=== PATIENT | female | born 1990 | race Caucasian/White ===

== ENCOUNTER → 2016-09-24 | Emergency (ER) | payer OTHER ==
[2016-09-24 18:33] VITALS: PULSE 69; BMI 24.1
--- NOTE | 2016-09-24 18:53 | PDOC ---
History of Present Illness <Carissa Rivero - Last Filed: 09/24/16 21:51> - General History Source: Patient Exam Limitations: No Limitations - History of Present Illness Initial Comments: 09/24/16 18:52 This pt is a 26 yo F () with no past medical history, who has not followed up with an pipe line gauger, who presents with a complaint of vaginal bleeding. She states her symptoms began today. She is currently NOT saturating any pads. No clots, no tissue no lower abdominal pain Pt has diffuse lower back pain, aching, rates pain 7/10, constant No fevers or chills no nausea or vomiting No dysuria ROS: GENERAL/CONSTITUTIONAL: No: fever, chills, weakness, loss of appetite. HEAD, EYES, EARS, NOSE AND THROAT: No: change in vision, ear pain, discharge, sore throat, throat swelling. CARDIOVASCULAR: No: chest pain, lightheadedness, palpitations, syncope RESPIRATORY: No: cough, shortness of breath, wheezing, hemoptysis, stridor. GASTROINTESTINAL: No: abdominal pain, nausea, vomiting, diarrhea GENITOURINARY: (+) Vaginal bleeding No: dysuria, hematuria, frequency, urgency, flank pain. MUSCULOSKELETAL: (+) back pain No: neck pain, joint pain, muscle swelling or pain SKIN: No: lesions, pallor, rash or easy bruising. NEUROLOGIC: No: headache, vertigo, paresthesias, weakness ENDOCRINE: No: unexplained weight gain or loss HEMATOLOGIC/LYMPHATIC: No: anemia, easy bleeding, swelling nodes. PHYSICAL EXAM GENERAL: The patient is in no acute distress. HEAD: Normal with no signs of trauma. EYES: PERRLA, EOMI, sclera anicteric, conjunctiva clear. ENT: Ears normal, nares patent, oropharynx clear without exudates. Moist mucous membranes. NECK: Normal range of motion, supple without lymphadenopathy, JVD, or masses. LUNGS: Breath sounds equal, clear to auscultation bilaterally. No wheezes, and no crackles. HEART:Regular rate and rhythm, normal S1 and S2 without murmur, rub or gallop. ABDOMEN: No lower abdominal tenderness to palpation, Soft, normoactive bowel sounds. No guarding, no rebound. PELVIC: PELVIC EXAMINATION: External genitalia: Normal without lesions. Vagina: Vault is clear scant blood in vault Cervix: Long and closed with no cervical motion tenderness. Uterus: Nontender, normal in size. Adnexa: Nontender, without masses. EXTREMITIES: Normal range of motion, no edema. No clubbing or cyanosis. No erythema, or tenderness. NEUROLOGICAL: Cranial nerves II through XII grossly intact. Normal speech. No focal neurological deficits. MUSCULOSKELETAL: Back non-tender to palpation, no CVA tenderness SKIN: Warm, Dry, normal turgor, no rashes or lesions noted. 09/24/16 19:22 <Deya Mitchell - Last Filed: 09/25/16 19:48> - General Chief Complaint: Vaginal Bleeding Stated Complaint: 10WKS/VAGINAL BLEEDING/BACK PAIN Time Seen by Provider: 09/24/16 18:34 Past History <Carissa Rivero - Last Filed: 09/24/16 21:51> - Psycho/Social/Smoking Cessation Hx Anxiety: No Suicidal Ideation: No Smoking History: Never smoked Have you smoked in the past 12 months: No Information on smoking cessation initiated: No Hx Alcohol Use: No Drug/Substance Use Hx: No Substance Use Type: None <Deya Mitchell - Last Filed: 09/25/16 19:48> - Past Medical History Allergies/Adverse Reactions: Allergies Allergy/AdvReac Type Severity Reaction Status Date / Time No Known Allergies Allergy Verified 09/24/16 18:30 Home Medications: Ambulatory Orders NK [No Known Home Medication] 09/25/16 *Physical Exam - Vital Signs Last Vital Signs Temp Pulse Resp BP Pulse Ox 97.6 F 69 18 113/57 100 09/24/16 18:31 09/24/16 18:31 09/24/16 18:31 09/24/16 18:31 09/24/16 18:31 <Carissa Rivero - Last Filed: 09/24/16 21:51> - Vital Signs Last Vital Signs Temp Pulse Resp BP Pulse Ox 97.6 F 69 18 113/57 100 09/24/16 18:31 09/24/16 18:31 09/24/16 18:31 09/24/16 18:31 09/24/16 18:31 <Deya Mitchell - Last Filed: 09/25/16 19:48> ED Treatment Course - LABORATORY CBC & Chemistry Diagram: 09/24/16 18:53 09/24/16 18:45 - ADDITIONAL ORDERS Additional order review: Laboratory Results 09/24/16 09/24/16 09/24/16 19:02 18:52 18:45 Sodium 140 Potassium 4.0 Chloride 106 Carbon Dioxide 27 Anion Gap 7 L BUN 6 L Creatinine 0.6 Random Glucose 103 Calcium 8.6 Beta HCG, Quant 86381.0 Urine Color Ltyellow Urine Appearance Clear Urine pH 8.0 Ur Specific [place] 1.011 Urine Protein Negative Urine Glucose (UA) Negative Urine Ketones Negative Urine Blood 2+ H Urine Nitrite Negative Urine Bilirubin Negative Urine Urobilinogen Negative Ur Leukocyte Esterase Trace H Blood Type A POSITIVE Antibody Screen Negative 09/24/16 18:53 RBC 4.14 MCV 87.8 MCHC 33.9 RDW 13.4 MPV 9.0 Neutrophils % 67.8 Lymphocytes % 23.8 Monocytes % 5.3 Eosinophils % 2.5 Basophils % 0.6 <Carissa Rivero - Last Filed: 09/24/16 21:51> - LABORATORY CBC & Chemistry Diagram: 09/24/16 18:53 09/24/16 18:45 - RADIOLOGY Radiology Studies Ordered: Category Date Time Status TRANSVAGINAL US PREG [US] Stat Ultrasound 09/24/16 18:35 Ordered <Deya Mitchell - Last Filed: 09/25/16 19:48> Medical Decision Making - Medical Decision Making 09/24/16 21:51 Transvaginal ultrasound as reviewed by Dr. Deleon reports single intrauterine gestational sac with estimated sonographic gestational age of 6 weeks 4 days. No pole identified. Rule out failed /blighted ovum. Correlation with serial quantitative serum beta hCG and close up ultrasound recommended. <Carissa Rivero - Last Filed: 09/24/16 21:51> - Medical Decision Making 09/24/16 19:31 Will do labs will do US Will re assess 09/24/16 19:32 09/24/16 19:57 Laboratory Tests 09/24/16 09/24/16 18:53 19:02 WBC 8.4 Hgb 12.3 Hct 36.3 Plt Count 186 Neutrophils % 67.8 Lymphocytes % 23.8 Urine Blood 2+ H Urine Nitrite Negative Ur Leukocyte Esterase Trace H 09/24/16 20:25 Laboratory Tests 09/24/16 18:45 Sodium 140 Potassium 4.0 Chloride 106 Carbon Dioxide 27 Anion Gap 7 L BUN 6 L Creatinine 0.6 Beta HCG, Quant 08479.0 09/24/16 20:30 Laboratory Tests 09/24/16 18:52 Blood Type A POSITIVE 09/24/16 20:30 Will await Transvaginal US 09/24/16 22:14 Transvaginal US: Estimated Gestational Age : 11 weeks 5 days No pole identified small sac consistent with 6 week 4 day gestation Pt given copies of all results Pt asked to follow up with pipe line gauger pt given names of possible obstetricians with whom she can follow up Will discharge to home Return to the ER for any other concerns or complaints Urine with ? UTI Will wait for Urine culture <Deya Mitchell - Last Filed: 09/25/16 19:48> *DC/Admit/Observation/Transfer <Carissa Rivero - Last Filed: 09/24/16 21:51> - Discharge Dispostion Admit: No <Deya Mitchell - Last Filed: 09/25/16 19:48> Diagnosis at time of Disposition: Threatened - Discharge Dispostion Disposition: HOME Condition at time of disposition: Stable - Referrals Referrals: Kumar Doyle MD [Primary Care Provider] - Gustavo Harrell MD [Staff Physician] - - Patient Instructions Printed Discharge Instructions: DI for Threatened Additional Instructions: Thank you for coming to the ER today Please follow up with your Elevator Pilot return to the ER for heavy vaginal bleeding - saturating 2 pads/hour x 2 hours, light headedness, weakness YO MUST HAVE A REPEAT ULTRASOUND AND HORMONE TEST (BHCG) IN 3 days IF YOU ARE UNABLE TO DO THIS, YOU CAN COME BACK TO THE ER TO BE RE EVALUATED Print Language: SINHALA
[2016-09-24 19:26] LABS: BASOPHIL 0.6 % (0-2.0); EOSINOPHIL 2.5 % (0-4.5); MCH 29.8 pg (25.7-33.7); MCHC 33.9 g/dl (32.0-36.0); MEAN CELL VOLUME 87.8 fl (80-96); NEUTROPHILS 67.8 % (42.8-82.8); PLATELET COUNT 186 K/MM3 (134-434); RDW 13.4 % (11.6-15.6); WHITE BLOOD COUNT 8.4 K/mm3 (4.0-10.0)
[2016-09-24 19:28] LABS: URINE APPEARANCE CLEAR; URINE BILIRUBIN NEGATIVE (NEGATIVE); URINE COLOR LTYELLOW; URINE GLUCOSE (UA) NEGATIVE (NEGATIVE); URINE KETONE NEGATIVE (NEGATIVE); URINE NITRITE NEGATIVE (NEGATIVE); URINE PROTEIN NEGATIVE (NEGATIVE); URINE UROBILINOGEN NEGATIVE E.U./dl (0.2-1.0)
[2016-09-24 19:37] LABS: CALCIUM 8.6 mg/dL (8.5-10.1); COCKROFT - GAULT 146.2255; CREATININE 0.6 mg/dL (0.55-1.02)
[2016-09-24 19:40] LABS: URINE BLOOD 2+ (NEGATIVE); URINE LEUK ESTERASE TRACE (NEGATIVE)
[2016-09-24 21:28] LABS: URINE RBC <1 /hpf (0-3); URINE WBC 1 /hpf (3-5)
[2016-09-24 22:48] VITALS: BP 100/65; TEMP 98.2
== END | disposition home or self-care (01) ==
LOC: JER 18:26
DX: O26.891 Other specified pregnancy related conditions, first trimester (principal); Z3A.09 9 weeks gestation of pregnancy; O20.0 Threatened abortion
CPT/HCPCS: 36415; 76817-TC; 80048; 81003; 81015; 84702; 85025; 86850; 86900; 86901; 87086; 99283-25

== ENCOUNTER 2016-09-25 18:05 | Emergency (ER) | payer OTHER ==
--- NOTE | 2016-09-25 18:09 | PDOC ---
History of Present Illness - General History Source: Patient, Spouse Exam Limitations: No Limitations, Language Barrier - History of Present Illness Initial Comments: 09/25/16 18:57 Patient is a 26 year old female, , with no past medical history, who presents with a complaint of vaginal bleeding. Patient was seen in [facility] 09/24 yesterday with same complaint. Patient returns today with increased vaginal bleeding. As per , the patient is soaking through pads, passing many clots with increased abdominal pain. Patient notes that this started 1 hour before presenting to the ED. states that the vaginal bleeding has worsened over the past hour. <Kortney Nieto - Last Filed: 09/25/16 19:32> - General History Source: Patient Exam Limitations: No Limitations <Deya Mitchell - Last Filed: 09/25/16 21:26> - General Chief Complaint: Vaginal Bleeding Stated Complaint: VAGINAL BLEEDING Time Seen by Provider: 09/25/16 18:08 Past History <Kortney Nieto - Last Filed: 09/25/16 19:32> - Past Medical History Other medical history: DENIES. - Reproductive History (#): 4 Para: 4 - Psycho/Social/Smoking Cessation Hx Anxiety: No Suicidal Ideation: No Smoking History: Never smoked Have you smoked in the past 12 months: No Hx Alcohol Use: No Drug/Substance Use Hx: No Substance Use Type: None <Deya Mitchell - Last Filed: 09/25/16 21:26> - Past Medical History Allergies/Adverse Reactions: Allergies Allergy/AdvReac Type Severity Reaction Status Date / Time No Known Allergies Allergy Verified 09/24/16 18:30 Home Medications: Ambulatory Orders NK [No Known Home Medication] 09/25/16 Review of Systems - Review of Systems Able to Perform ROS?: Yes Comments:: 09/25/16 19:04 GENERAL/CONSTITUTIONAL: No: fever, chills, weakness, loss of appetite. HEAD, EYES, EARS, NOSE AND THROAT: No: change in vision, ear pain, discharge, sore throat, throat swelling. CARDIOVASCULAR: No: chest pain, lightheadedness, palpitations, syncope RESPIRATORY: No: cough, shortness of breath, wheezing, hemoptysis, stridor. GASTROINTESTINAL: +lower abdominal pain. No: nausea, vomiting, diarrhea GENITOURINARY: + Vaginal bleeding No: dysuria, hematuria, frequency, urgency, flank pain. MUSCULOSKELETAL: + back pain No: neck pain, joint pain, muscle swelling or pain SKIN: No: lesions, pallor, rash or easy bruising. NEUROLOGIC: No: headache, vertigo, paresthesias, weakness ENDOCRINE: No: unexplained weight gain or loss HEMATOLOGIC/LYMPHATIC: No: anemia, easy bleeding, swelling nodes. <Kortney Nieto - Last Filed: 09/25/16 19:32> *Physical Exam - Vital Signs Last Vital Signs Temp Pulse Resp BP Pulse Ox 97.7 F 68 18 121/64 100 09/25/16 18:07 09/25/16 18:07 09/25/16 18:07 09/25/16 18:07 09/25/16 18:07 - Physical Exam Comments: 09/25/16 19:32 GENERAL: The patient is in no acute distress. HEAD: Normal with no signs of trauma. EYES: PERRLA, EOMI, sclera anicteric, conjunctiva clear. ENT: Ears normal, nares patent, oropharynx clear without exudates. Moist mucous membranes. NECK: Normal range of motion, supple without lymphadenopathy, JVD, or masses. LUNGS: Breath sounds equal, clear to auscultation bilaterally. No wheezes, and no crackles. HEART:Regular rate and rhythm, normal S1 and S2 without murmur, rub or gallop. ABDOMEN: +lower abdominal tenderness to palpation, Soft, normoactive bowel sounds. No guarding, no rebound. PELVIC: PELVIC EXAMINATION: +Large amount of blood in vaginal vault with clots EXTREMITIES: Normal range of motion, no edema. No clubbing or cyanosis. No erythema, or tenderness. NEUROLOGICAL: Cranial nerves II through XII grossly intact. Normal speech. No focal neurological deficits. MUSCULOSKELETAL: Back non-tender to palpation, no CVA tenderness SKIN: Warm, Dry, normal turgor, no rashes or lesions noted. <Kortney Nieto - Last Filed: 09/25/16 19:32> - Vital Signs Last Vital Signs Temp Pulse Resp BP Pulse Ox 97.7 F 68 18 121/64 100 09/25/16 18:07 09/25/16 18:07 09/25/16 18:07 09/25/16 18:07 09/25/16 18:07 <Deya Mitchell - Last Filed: 09/25/16 21:26> ED Treatment Course - LABORATORY CBC & Chemistry Diagram: 09/25/16 18:35 09/25/16 18:35 <Kortney Nieto - Last Filed: 09/25/16 19:32> - LABORATORY CBC & Chemistry Diagram: 09/25/16 18:35 09/25/16 18:35 <Deya Mitchell - Last Filed: 09/25/16 21:26> Medical Decision Making - Medical Decision Making 09/25/16 18:09 A portion of this note was documented by scribe services under my direction. I have reviewed the details of the note, within reason, and agree with the documentation with the following case summary and management plan written by me. Nursing documentation reviewed and incorporated into medical decision making This is a 26 yo F with no significant past medical history Pt presents to the ER with a complaint of heavy vaginal bleeding that began 1 hour ago Pt was seen in the ER last night where estimated gestational age is 11 weeks BHCG 16k US demonstrated 6 week gestational sac Pt currently has significant bleeding and lower abdominal pain No dizziness or lightheadedness 09/25/16 19:01 Laboratory Tests 09/24/16 09/25/16 18:53 18:35 WBC 8.4 8.9 Hgb 12.3 12.3 Hct 36.3 36.8 Plt Count 186 174 09/25/16 19:43 Laboratory Tests 09/24/16 09/25/16 18:45 18:35 Beta HCG, Quant 34041.0 38833.0 Pt sent to US 09/25/16 21:13 US demonstrates gestational sac in the cervical canal Ovaries nml Intact blood flow to ovaries No effusion Pt re assessed Pt states bleeding has decreased significantly Case reviewed with Dr Harrell Pt is demonstrating progression, hgb is stable, she has passed products There is no need for D&C Pt will be discharged to home follow up with WELFARE PROJECT MANAGER in 1 week Return to the ER for any other concerns or complaints <Deya Mitchell - Last Filed: 09/25/16 21:26> *DC/Admit/Observation/Transfer <Kortney Nieto - Last Filed: 09/25/16 19:32> - Discharge Dispostion Admit: No <Deya Mitchell - Last Filed: 09/25/16 21:26> Diagnosis at time of Disposition: Complete spontaneous - Discharge Dispostion Disposition: HOME Condition at time of disposition: Stable - Referrals Referrals: Kumar Doyle MD [Primary Care Provider] - Gustavo Harrell MD [Staff Physician] - Tamar Juarez MD [Staff Physician] - - Patient Instructions Printed Discharge Instructions: DI for Miscarriage Additional Instructions: Thank you for coming in to the ER again It was important that you came in today It appears that you have had a miscarriage Please monitor yourself for heavy vaginal bleeding - saturating 2 pads/hour x 2 hours, lightheadedness, dizziness Please return to the ER for any other concerns or complaints
[2016-09-25 18:14] VITALS: BMI 25.4
[2016-09-25 18:49] LABS: BASOPHIL 0.6 % (0-2.0); EOSINOPHIL 2.7 % (0-4.5); MCH 29.5 pg (25.7-33.7); MCHC 33.5 g/dl (32.0-36.0); MEAN CELL VOLUME 88.2 fl (80-96); MEAN PLT VOLUME 8.8 fl (7.5-11.1); NEUTROPHILS 68.5 % (42.8-82.8); PLATELET COUNT 174 K/MM3 (134-434); RDW 13.1 % (11.6-15.6); WHITE BLOOD COUNT 8.9 K/mm3 (4.0-10.0)
[2016-09-25 19:08] LABS: ALBUMIN 3.9 g/dl (3.4-5.0); ANION GAP 8 (8-16); CALCIUM 8.9 mg/dL (8.5-10.1); CO2 25 mmol/L (21-32); COCKROFT - GAULT 149.2515; CREATININE 0.6 mg/dL (0.55-1.02); GLUCOSE,RANDOM 101 mg/dL (74-106); SGOT/AST 14 U/L (15-37); SGPT/ALT 18 U/L (12-78)
[2016-09-25 19:10] LABS: ALK PHOS 41 U/L (45-117); BILIRUBIN,TOTAL 0.3 mg/dL (0.2-1.0); TOT PROT 7.1 g/dl (6.4-8.2)
[2016-09-25 20:22] VITALS: TEMP 98
[2016-09-25 21:47] VITALS: BP 106/59; PULSE 70
--- NOTE | 2016-09-28 12:57 | PATH ---
Surgical Pathology Report Patient Name: CHRISTIANO MITCHELL Med. Rec. #: [id number] /Age/Gender: 1990 (Age: 26) / F Account: [id number] Location: EMERGENCY ROOM Taken: 09/25/2016 Received: 09/27/2016 Reported: 09/28/2016 Physicians: PHYSICIAN EMERGENCY DEPT Specimen(s) Received TISSUE/CLOTS Clinical History 26 year old female approximately 11 weeks by dates presents with vaginal bleeding Final Diagnosis UTERINE CONTENTS, EVACUATION: CLOTTED BLOOD WITH RARE TROPHOBLAST CONSISTENT WITH PRODUCTS OF CONCEPTION. Comment: Recommend correlation with clinical and radiologic findings and follow up as clinically indicated. Electronically Signed Garry Lincoln M.D. Gross Description Received in formalin labeled with the patient's name and indicated on the requisition to be blood clot, is a 12.5 x 9.0 x 1.2 cm aggregate of red-brown blood clot. No definite villous tissue or somatic tissue is identified. Meal Temperer sections are submitted in 3 cassettes. /09/27/2016 saudi/09/27/2016
== END 2016-09-25 21:47 | disposition home or self-care (01) ==
LOC: JER 18:05
DX: O03.9 Complete or unspecified spontaneous abortion without complication (principal); Z3A.01 Less than 8 weeks gestation of pregnancy
CPT/HCPCS: 36415; 76817-TC; 80053; 84702; 85025; 86850; 86900; 86901; 88305-TC; 99284-25

== ENCOUNTER 2016-11-09 14:17 | Emergency (ER) | payer OTHER ==
[2016-11-09 14:24] VITALS: BP 106/62; PULSE 62; TEMP 98.1; BMI 21.2
--- NOTE | 2016-11-09 14:26 | PDOC ---
Rapid Medical Evaluation Time Seen by Provider: 11/09/16 14:19 Medical Evaluation: Allergies Allergy/AdvReac Type Severity Reaction Status Date / Time No Known Allergies Allergy Verified 09/24/16 18:30 Vitals: 98.1, pulse 62, O2 98, RR 16 Bp 106/62. 11/09/16 14:20 o I have performed a brief in-person evaluation of this patient. o The patient presents with a chief complaint of: Right ankle inversion injury, s/p fall o Pertinent physical exam findings: Swelling pain to the right lateral ankle o I have ordered the following: x ray: right ankle and foot. o The patient will proceed to the ED for further evaluation.
--- NOTE | 2016-11-09 15:26 | PDOC ---
History of Present Illness - General Chief Complaint: Injury Stated Complaint: FELL/RIGHT LEG PAIN Time Seen by Provider: 11/09/16 14:19 Past History - Past Medical History Allergies/Adverse Reactions: Allergies Allergy/AdvReac Type Severity Reaction Status Date / Time No Known Allergies Allergy Verified 11/09/16 14:23 Home Medications: Ambulatory Orders NK [No Known Home Medication] 09/25/16 Other medical history: PATIENT DENIES MEDICAL HISTORY - Reproductive History (#): 4 Para: 4 - Psycho/Social/Smoking Cessation Hx Anxiety: No Suicidal Ideation: No Smoking History: Never smoked Have you smoked in the past 12 months: No Hx Alcohol Use: No Drug/Substance Use Hx: No Substance Use Type: None *Physical Exam - Vital Signs Last Vital Signs Temp Pulse Resp BP Pulse Ox 98.1 F 62 16 106/62 98 11/09/16 14:20 11/09/16 14:20 11/09/16 14:20 11/09/16 14:20 11/09/16 14:20 ED Treatment Course - ADDITIONAL ORDERS Additional order review: Laboratory Results 11/09/16 14:32 Urine HCG, Qual Negative *DC/Admit/Observation/Transfer Diagnosis at time of Disposition: Elbow pain, right
[2016-11-09] MEDS ORDERED: IBUPROFEN 400 MG TABLET (FP) PO ONE ×2 (15:40→15:42)
--- NOTE | 2016-11-09 15:42 | PDOC ---
History of Present Illness - General Chief Complaint: Injury Stated Complaint: FELL/RIGHT LEG PAIN Time Seen by Provider: 11/09/16 14:19 History Source: Patient - History of Present Illness Occurred: reports: this morning Lower Extremity Pain Location: right: ankle Method of Injury: Yes: fell Past History - Past Medical History Allergies/Adverse Reactions: Allergies Allergy/AdvReac Type Severity Reaction Status Date / Time No Known Allergies Allergy Verified 11/09/16 14:23 Home Medications: Ambulatory Orders NK [No Known Home Medication] 09/25/16 Other medical history: PATIENT DENIES MEDICAL HISTORY - Reproductive History (#): 4 Para: 4 - Psycho/Social/Smoking Cessation Hx Anxiety: No Suicidal Ideation: No Smoking History: Never smoked Have you smoked in the past 12 months: No Hx Alcohol Use: No Drug/Substance Use Hx: No Substance Use Type: None Review of Systems - Review of Systems Musculoskeletal: Yes: Joint Pain, Joint Swelling *Physical Exam - Vital Signs Last Vital Signs Temp Pulse Resp BP Pulse Ox 98.1 F 62 16 106/62 98 11/09/16 14:20 11/09/16 14:20 11/09/16 14:20 11/09/16 14:20 11/09/16 14:20 - Physical Exam General Appearance: Yes: Appropriately Dressed. No: Apparent Distress HEENT: positive: Normal Voice Neck: positive: Supple Respiratory/Chest: negative: Respiratory Distress Extremity: positive: Tender, Swelling Integumentary: positive: Dry, Warm Neurologic: positive: Fully Oriented, Alert, Normal Mood/Affect ED Treatment Course - ADDITIONAL ORDERS Additional order review: Laboratory Results 11/09/16 14:32 Urine HCG, Qual Negative Medical Decision Making - Medical Decision Making 11/09/16 15:41 26-year-old female, no significant history, here with right ankle pain, swelling , status post tripping outdoors this a.m. Able to bear weight but painful. Patient well-appearing and in no apparent distress with minimal swelling diffusely to right ankle. No deformity. Able to bear weight in ED. X-ray taken and negative for any fractures. Asher applied an ED. Discharge with supportive treatment *DC/Admit/Observation/Transfer Diagnosis at time of Disposition: Ankle sprain Qualifiers: Encounter type: initial encounter Involved ligament of ankle: unspecified ligament Laterality: right Qualified Code(s): S93.401A - Sprain of unspecified ligament of right ankle, initial encounter - Discharge Dispostion Disposition: HOME Condition at time of disposition: Good - Referrals Referrals: Kumar Doyle MD [Primary Care Provider] - - Patient Instructions Printed Discharge Instructions: DI for Ankle Sprain Additional Instructions: Your x-ray was negative for any fracture. You have a sprain which can take several days to week to get better. Take Motrin as needed for pain. Apply ice to area of swelling and elevate at home - Post Discharge Activity
== END 2016-11-09 15:55 | disposition home or self-care (01) ==
LOC: JER 14:17 → JERFT 14:17
DX: S93.401A Sprain of unspecified ligament of right ankle, initial encounter (principal); X58.XXXA Exposure to other specified factors, initial encounter; Y93.9 Activity, unspecified; Y92.9 Unspecified place or not applicable
CPT/HCPCS: 73610-TC-RT; 73630-TC-RT; 84703; 99281-25

== ENCOUNTER 2017-08-04 11:50 | Emergency (ER) | payer OTHER ==
[2017-08-04 12:10] VITALS: TEMP 98.6; BMI 29.2
--- NOTE | 2017-08-04 12:27 | PDOC ---
Attending Attestation - Resident Resident Name: AixaMaryse - ED Attending Attestation I have performed the following: I have examined & evaluated the patient, The case was reviewed & discussed with the resident, I agree w/resident's findings & plan, Exceptions are as noted - HPI HPI: 08/04/17 18:48 The patient is a 27 year old female who is 20 weeks and no other significant PMH who presents to the emergency department with a sudden onset of shortness of breath and productive cough beginning at approximately 5AM this morning. She also notes that she has chest pain only with deep inspiration but not at rest. The patients describes the patients cough as productive of 'brownish sputum' with associated throat pain. She took Robitussin this morning to some relief. She also endorses subjective fever and palpitations. Denies recent travel, hx PE. Allergies: NKA - Physicial Exam PE: 08/04/17 18:44 GENERAL: Awake, alert, and fully oriented, in mild resp distress with accessory muscle use HEAD: No signs of trauma EYES: PERRLA, EOMI, sclera anicteric, conjunctiva clear ENT: Auricles normal inspection, hearing grossly normal, nares patent, oropharynx clear without exudates. Moist mucosa NECK: Normal ROM, supple, no lymphadenopathy, JVD, or masses LUNGS: +mild wheezing and rhoncerhous BS b/l, tachypneic to 35 HEART:tachy but regular to 100, normal S1 and S2, no murmurs, rubs or gallops ABDOMEN: Soft, nontender, normoactive bowel sounds. No guarding, no rebound. No masses EXTREMITIES: Normal range of motion, no edema. No clubbing or cyanosis. No cords, erythema, or tenderness : gravid uterus to umbulicus BACK: No midline spinal tenderness in cervical/thoracic/lumbar region NEUROLOGICAL: Normal speech, cranial nerves intact, negative pronator drift, 5/ 5 strength in all 4 extremities, normal sensation to light touch in all 4 extremities, normal cerebellar exam, normal reflexes and tone SKIN: Warm, Dry, normal turgor, no rashes or lesions noted. - Medical Decision Making 08/04/17 12:46 27-year-old female, currently 20 weeks presents emergency Department with sudden onset shortness of breath, pleuritic chest pain, cough productive of brown sputum, and subjective fevers. Vitals remarkable for tachycardia to 106 , hypoxia to 91% and tacypnea to 35. Exam with tachycardia, rhoncherous BS, mild wheezing. Given sudden nature of sxs, concern for PE in setting of . DDx also includes but not limited to asthma vs PNA vs cardiomyopathy. Discussed with patient and her in [place] language ( [place]) that while she is , a PE is a dangerous diagnosis, especially with such abnormal vitals, and that we highly recommend a CTA for diagnosis. Discussed risks of radiation to fetus, but given high suspicion for PE, the benefits of obtaining the CTA outweighed the risks. Pt consents to CTA. Labs have been sent off, discussed with radiology that patient consents for study despite being . Dr. Stubbs requesting creatinine first (communicated to us by durability technician), however given high suspicion for PE and abnormal vitals, we have called Dr. Stubbs to discuss obtaining study without creatinine so as not to delay diagnosis and treatment. We are awaiting a call back. 08/04/17 13:[address] Stubbs, hospital policy that we require creatinine prior to CTA. Creatinine is pending at this time. Pt's vitals improved, HR 99, RR 26, O2 sat 99% 2L 08/04/17 18:48 CTA done, limited study but no large central PE. Can not r/o small PE. Also, possible mass vs consolidation. Pt treated with ctx and azitrho for presumed PNA. Given possible seg/subseg PE, pt treated empirically with lovenox per recommendations from her OB at [facility]. Pt receives all care at [facility] and upon discussion with Dr. Patterson from OB and medicine team here, given complexity of case - 20wks with possible PE + PNA, pt to be transferred to [facility]. She has been accepted for transfer to [facility]. Pt reports improvement in sxs with nebs, abx, O2. Trop neg x2. UA neg for infx. Vitals stable. L&D nurses checked FHR at bedside, found to be wnl. Awaiting ALS team for transfer Heart Score/ECG Review #1 08/04/17 12:45 Twelve-lead EKG was performed and reviewed by me. Normal sinus rhythm, rate 99. Normal axis. <1mm ST depressions in 2, 3, aVF, V5, V6
[2017-08-04] MEDS ORDERED: ALBUTEROL SO4 2.5/IPRATROPIUM 0.5 INH SOL 3 ML VIAL.NEB. NEB ONE (12:41)
--- NOTE | 2017-08-04 12:55 | PDOC ---
History of Present Illness - General Chief Complaint: Shortness of Breath Stated Complaint: CHEST PAIN, SOB (20 WKS ) Time Seen by Provider: 08/04/17 12:13 History Source: Patient, Family, Machine Packer Used Exam Limitations: Language Barrier - History of Present Illness Initial Comments: 08/04/17 12:53 27 y/o F (currently 21 weeks ), who presents to the ED c/o SOB over the past day. As per pt's , yesterday, she developed productive cough with brown sputum, as well as "cold" symptoms so he called her commodity merchant ( Dr. Yeager, on [facility]) and was told to give her Robitussin. This morning at 5AM, pt complained to her that she felt increasingly SOB, endorsing chest pain with deep breaths. She also c/o continued productive cough with brown sputum. gave her an additional dose of Robitussin. However, her SOB worsened greatly, so much so that he found her lying on the kitchen table to get deep breaths in. During this time, pt also endorsed palpitations, diffuse LINK, nausea and emesis (which she has had throughout so far). She denies recent travel, surgeries, lower extremity edema or pain, abdominal pain, or sick contacts. PMH: none psxH: multiple episiotomies x 3 meds: none allergies: NKDA FH: non-contributory SH: denies cigarette, alcohol, or recreational drug use Past History - Travel Traveled outside of the country in the last 30 days: No - Past Medical History Allergies/Adverse Reactions: Allergies Allergy/AdvReac Type Severity Reaction Status Date / Time No Known Allergies Allergy Verified 05/07/17 14:03 Home Medications: Ambulatory Orders NK [No Known Home Medication] 09/25/16 COPD: No - Reproductive History (#): 4 Para: 4 - Immunization History Immunization Up to Date: Yes - Suicide/Smoking/Psychosocial Hx Smoking History: Never smoked Have you smoked in the past 12 months: No Hx Alcohol Use: No Drug/Substance Use Hx: No Substance Use Type: None Review of Systems - Review of Systems Able to Perform ROS?: Yes Is the patient limited [place] proficient: Yes Respiratory: Yes: Shortness of Breath, Productive cough Cardiac (ROS): Yes: Palpitations ABD/GI: Yes: Nausea, Vomiting All Other Systems: Reviewed and Negative *Physical Exam - Vital Signs Last Vital Signs Temp Pulse Resp BP Pulse Ox 98.6 F 97 H 24 117/63 91 L 08/04/17 12:07 08/04/17 12:07 08/04/17 12:07 08/04/17 12:07 08/04/17 12:07 - Physical Exam General Appearance: Yes: Severe Distress, Other (with accessory muscle usage, appears uncomfortable) HEENT: positive: EOMI, LAYA Neck: positive: Supple Respiratory/Chest: positive: Accessory Muscle Use, Labored Respiration, Wheezing Cardiovascular: positive: Regular Rhythm, S1, S2, Tachycardia Vascular Pulses: Dorsalis-Pedis (R): 2+, Doralis-Pedis (L): 2+ Gastrointestinal/Abdominal: positive: Normal Bowel Sounds, Soft Musculoskeletal: positive: Normal Inspection Integumentary: positive: Normal Color Neurologic: positive: leave manager II-XII NML intact ED Treatment Course - LABORATORY CBC & Chemistry Diagram: 08/04/17 12:40 08/04/17 12:40 - RADIOLOGY Radiology Studies Ordered: Category Date Time Status CHEST CTA [CT] Stat CT Scan 08/04/17 12:33 Ordered Medical Decision Making - Medical Decision Making 08/04/17 13:11 27 y/o F (currently 21 weeks ), who presents to the ED c/o SOB over the past day. Pt with concerning hx for PE- possible hemoptysis, state- hypercoaguable, tachypneic, etc. Will send labs, septic workup, will need urgent CTA. Risks and benefits to concerning radiation discussed with patient, expressed verbal understanding. "Consent for imaging procedure of abdomen and pelvis on women, department of radiology" form signed and dated. Case discussed with radiology department will need to await Creatinine before taking patient to CT scan. Called lab for result and gave call back number for immediate reporting. Pt currently endorses mild improvement in breathing while on neb tx. 08/04/17 13:14 CBC has returned, white count ~12k awaiting Creatinine level 08/04/17 13:42 Cr returned WNL 08/04/17 13:44 Well's score PE : 5.5, moderate risk 08/04/17 13:44 Pt less tachypneic now on 2L NC 02 RR 23-24 vs. 30's prior 08/04/17 15:16 CT scan has returned - result "cannot r/o distal emboli" Pleural R apical masses/consolidation - will need further workup will need admission - tachypnea, cannot r/o distal emboli, possible R apical masses/consolidation 08/04/17 15:32 -will need ID input for PNA tx 08/04/17 16:06 Case discussed with Nurse Ding L&D Will relay to Dr. Singletary 08/04/17 16:32 Case d/w Dr. Singletary will benefit from transfer to [facility] 08/04/17 16:42 No accepting physician at [facility] Will call Dr. Singletary back 08/04/17 17:02 Calling [facility] 08/04/17 17:[address] Moon Will accept patient as long as therapeutic dose lovenox given and heart beat checked and confirmed will give and call back 08/04/17 17:20 To give therapeutic dose lovenox - 80 mg x 1 HR 155-163 08/04/17 17:35 will call transfer center back 08/04/17 18:[address] Elizabeth Ospina, [facility] will prep discs of CTA [facility] will send ambulance and call back with transfer time 08/04/17 18:46 Receiving azithro, ceftriaxone - CAP coverage 08/04/17 18:50 7:40PM ETA transfer pickup *DC/Admit/Observation/Transfer Diagnosis at time of Disposition: Tachycardia - Discharge Dispostion Disposition: TRANSFER ACUTE CARE/OTHER HOSP Condition at time of disposition: Guarded - Referrals - Patient Instructions - Post Discharge Activity
[2017-08-04 13:04] LABS: BASO % 0.2 % (0-2.0); HEMATOCRIT 37.6 % (32.4-45.2); MCH 30.8 pg (25.7-33.7); MCHC 34.5 g/dl (32.0-36.0); MEAN CELL VOLUME 89.1 fl (80-96); MEAN PLT VOLUME 8.9 fl (7.5-11.1); MONO % 5.2 % (3.8-10.2); NEUT % 84.6 % (42.8-82.8); PLATELET COUNT 162 K/MM3 (134-434); RBC 4.22 M/mm3 (3.60-5.2); RDW 14.8 % (11.6-15.6); WHITE BLOOD COUNT 12.2 K/mm3 (4.0-10.0)
[2017-08-04 13:10] LABS: VENOUS PC02 38.4 mmHg (38-52); VENOUS PH 7.38 (7.32-7.42); VENOUS PO2 30.7 mmHg (28-48)
[2017-08-04 13:17] LABS: PROTHROMBIN TIME (PATIENT) 11.3 SEC (9.98-11.88)
[2017-08-04 13:20] LABS: ACTIVATED PTT 27.1 SECONDS (26.9-34.4)
[2017-08-04 13:36] LABS: ALBUMIN 3.2 g/dl (3.4-5.0); ANION GAP 10 (8-16); BILIRUBIN,TOTAL 0.3 mg/dL (0.2-1.0); BLOOD UREA NITROGEN 3 mg/dL (7-18); CALCIUM 8.5 mg/dL (8.5-10.1); CHLORIDE 105 mmol/L (98-107); CO2 23 mmol/L (21-32); CREATININE 0.4 mg/dL (0.55-1.02); GLUCOSE,RANDOM 99 mg/dL (74-106); POTASSIUM 3.9 mmol/L (3.5-5.1); SGOT/AST 17 U/L (15-37); SGPT/ALT 21 U/L (12-78); SODIUM 138 mmol/L (136-145); TOT PROT 6.8 g/dl (6.4-8.2)
[2017-08-04 13:37] LABS: ALK PHOS 71 U/L (45-117)
--- NOTE | 2017-08-04 15:07 | EKG ---
Test Reason : Blood Pressure : / mmHG Vent. Rate : 099 BPM Atrial Rate : 099 BPM P-R Int : 156 ms QRS Dur : 070 ms QT Int : 332 ms P-R-T Axes : 050 015 033 degrees QTc Int : 426 ms NORMAL SINUS RHYTHM NONSPECIFIC ST ABNORMALITY ABNORMAL ECG NO PREVIOUS ECGS AVAILABLE Confirmed by TAYLOR RODRIGUEZ MD ([id number]) on 08/04/2017 3:07:32 PM Referred By: Confirmed By:TAYLOR RODRIGUEZ MD
[2017-08-04 16:24] LABS: URINE APPEARANCE CLEAR; URINE BILIRUBIN NEGATIVE (NEGATIVE); URINE BLOOD NEGATIVE (NEGATIVE); URINE COLOR LTYELLOW; URINE GLUCOSE (UA) NEGATIVE (NEGATIVE); URINE KETONE NEGATIVE (NEGATIVE); URINE LEUK ESTERASE NEGATIVE (NEGATIVE); URINE NITRITE NEGATIVE (NEGATIVE); URINE PROTEIN NEGATIVE (NEGATIVE); URINE UROBILINOGEN NEGATIVE mg/dL (0.2-1.0)
[2017-08-04] MEDS ORDERED: ENOXAPARIN NA (PORCINE) 80 MG/0.8 ML DISP.SYRIN SQ SCH (17:30)
[2017-08-04] MEDS ORDERED: ENOXAPARIN NA (PORCINE) 80 MG/0.8 ML DISP.SYRIN SQ ONE (17:45)
[2017-08-04] MEDS ORDERED: AZITHROMYCIN IVPB 500 MG in DEXTROSE 5%-WATER - 250 ML IVPB ONE (18:19)
[2017-08-04] MEDS ORDERED: CEFTRIAXONE 1 GM/50 ML BAG ONE (18:33)
[2017-08-04] MEDS ORDERED: AZITHROMYCIN IVPB 250 ML IVPB ONE (18:33)
[2017-08-04 19:48] VITALS: BP 93/47; PULSE 89
== END 2017-08-04 19:48 | disposition short-term general hospital (02) ==
LOC: JER 11:50
PROC: 3E023GC Introduction of Other Therapeutic Substance into Muscle, Percutaneous Approach (ICD-10-PCS; principal; 2017-08-04)
PROC: 3E02329 Introduction of Other Anti-infective into Muscle, Percutaneous Approach (ICD-10-PCS; 2017-08-04)
DX: R00.0 Tachycardia, unspecified (principal)
CPT/HCPCS: 36415; 71275-TC; 80053; 81003; 82803; 83605; 83880; 84484; 85025; 85610; 85730; 87040; 87086; 93005; 93010; 99285-25